=== PATIENT | male | born 1950 | race Caucasian/White ===

== ENCOUNTER 2016-10-28 18:40 | Emergency (ER) | payer MEDICARE, OTHER ==
[~2016-10-28 18:40] MED LIST: CEFTIN500 MG PO; ECOTRIN81 MG PO; HYDROCHLOROTHIA25 MG PO; IMDUR ER TAB 3030 MG PO; LEVAQUIN750 MG PO; MEDROL DOSEPAK 24 MG PO; NEURONTIN 300300 MG PO; PHENERGAN 25 MG25 M1 PO; POLYETHYLENE2500 G1 PO; PROVENTIL HFA6.7 GM IH; ZESTRIL10 MG PO; ZOCOR 40 MG TAB40 MG PO; ZOFRAN4 MG PO
[2016-10-28 19:32] LABS: HEMOGLOBIN 12.4 gm/dl (14.0-17.5); RED BLOOD COUNT 3.99 M/UL (4.20-5.50); WHITE BLOOD COUNT 5.9 K/UL (4.5-11.0)
[2016-10-28 20:01] LABS: BUN/CREATININE RATIO 13 (0-10)
== END 2016-10-28 23:17 | disposition home or self-care (01) ==
LOC: ER1 18:40
PROVIDERS: Physician Assistant
DX: G89.29 Other chronic pain (principal); R10.9 Unspecified abdominal pain; I71.4 Abdominal aortic aneurysm, without rupture; R07.9 Chest pain, unspecified; K59.00 Constipation, unspecified; I11.9 Hypertensive heart disease without heart failure; J44.9 Chronic obstructive pulmonary disease, unspecified; Z99.81 Dependence on supplemental oxygen; Z98.61 Coronary angioplasty status
CPT/HCPCS: 36415; 71010; 80053; 82550; 82553; 83605; 83874; 84484; 85025; 93005; 96374; 96375; 96376; 99285; J2270; J2405; J7040; J7050; Q9962